=== PATIENT | female | born 1990 | race Two or more races ===

== ENCOUNTER → 2025-02-02 | Day surgery (SDC) | payer OTHER ==
[2025-01-31 10:32] LABS: BASO % 0.7 % (0.1-1.2); EOS # 0.47 (0.04-0.54); EOS % 5.8 % (0.7-7.0); HEMATOCRIT 41.7 % (34.1-44.9); HEMOGLOBIN 13.4 g/dL (11.2-15.7); LYMPH # 3.31 (1.18-3.74); LYMPH % 41.1 % (19.3-53.1); MEAN CORPUSCULAR HEMOGLOBIN 26.6 pg (25.6-32.2); MONO # 0.49 (0.24-0.82); MONO % 6.1 % (4.7-12.5); NEUT % 46.1 % (34.0-71.1); PLATELET COUNT 195 K/uL (163-369); RED BLOOD COUNT 5.04 M/uL (3.93-5.22); RED CELL DISTRIBUTION WIDTH 13.3 % (11.6-14.4)
[2025-01-31 10:33] LABS: URINE APPEARANCE Clear; URINE BILIRRUBIN Negative (NEGATIVE); URINE BLOOD Negative; URINE COLOR Yellow; URINE GLUCOSE Negative (NEGATIVE); URINE KETONE Negative (NEGATIVE); URINE LEUKOCYTE Negative; URINE NITRATE Negative; URINE PROTEIN Negative (NEGATIVE); URINE UROBILINOGEN 0.2 E.U./dl
[2025-01-31 10:34] LABS: URINE BACTERIA 1627.8 uL (0.0-1933); URINE EPITHELIAL CELLS 38.7 uL (0.0-38.8); URINE RBC 20.3 uL (0.0-20.8); URINE WBC 9.3 uL (0.0-23.2)
[2025-01-31 10:39] VITALS: BP 143/80
[2025-01-31 10:44] LABS: URINE CAST 0.58 uL (0.0-1.40)
[2025-01-31 11:06] LABS: INR 1.04; PARTIAL THROMBOPLASTIN TIME 27.3 SECONDS (22.0-34.0); PROTHROMBIN TIME 11.3 SECONDS (9.0-11.5)
[2025-01-31 11:14] LABS: BILIRUBIN TOTAL 0.37 mg/dL (0.3-1.2); CALCIUM 9.1 mg/dL (8.5-10.1); CREATININE SERUM 0.62 mg/dL (0.55-1.02); GFR 109.54; GLOBULINA 3.2 G/DL (2.4-3.5); POTASSIUM 4.15 mEq/L (3.5-5.1); TOTAL PROTEIN 7.2 gm/dL (6.4-8.2)
[~2025-02-02] VITALS: Ht 175.3 cm; Wt 77.1 kg
[~2025-02-02] MED LIST: CEFAZOLIN SODIUM 1,000 MG VIAL ONE; MORPHINE SULFATE 4 MG/ML VIAL IV ONE; PEPCID AC10 MG
== END | disposition home or self-care (01) ==
LOC: ADM 01-31 09:15 → CIR.AMB 05:50
PROVIDERS: ATTEND Specialist
DX: K80.10 Calculus of gallbladder with chronic cholecystitis without obstruction (principal)